=== PATIENT | female | born 1955 | race Caucasian/White ===

== ENCOUNTER → 2016-05-10 17:06 | Outpatient (CLI) | payer MEDICARE ==
[2014-09-30 12:19] VITALS: BMI 24.8
[~2016-05-10 17:06] MED LIST: XANAX0.25 MG PO; ZOLOFT50 MG PO
== END | disposition home or self-care (01) ==
LOC: D.MAMMO 11:45
DX: Z12.31 Encounter for screening mammogram for malignant neoplasm of breast (principal)

== ENCOUNTER → 2016-06-22 18:51 | Outpatient (CLI) | payer MEDICARE ==
[2014-09-30 12:19] VITALS: BMI 24.8
== END | disposition home or self-care (01) ==
LOC: D.MAMMO 09:30
DX: R92.8 Other abnormal and inconclusive findings on diagnostic imaging of breast (principal)

== ENCOUNTER → 2016-07-14 16:05 | Outpatient (CLI) | payer MEDICARE ==
[2014-09-30 12:19] VITALS: BMI 24.8
== END | disposition home or self-care (01) ==
LOC: D.US 06-29 11:00 → D.MAMMO 13:00
DX: R92.0 Mammographic microcalcification found on diagnostic imaging of breast (principal)

== ENCOUNTER 2017-10-15 08:00 | Outpatient (CLI) | payer MEDICARE ==
[2014-09-30 12:19] VITALS: BMI 24.8
== END 2017-10-15 09:00 | disposition home or self-care (01) ==
LOC: D.MAMMO 08:00
DX: Z12.31 Encounter for screening mammogram for malignant neoplasm of breast (principal)

== ENCOUNTER 2018-10-25 08:00 | Outpatient (CLI) | payer MEDICARE ==
[2014-09-30 12:19] VITALS: BMI 24.8
== END 2018-10-25 23:59 | disposition home or self-care (01) ==
LOC: D.MAMMO 08:00
PROVIDERS: ATTEND Nurse Practitioner Family
DX: Z12.31 Encounter for screening mammogram for malignant neoplasm of breast (principal)

== ENCOUNTER 2020-09-15 14:00 | Outpatient (CLI) | payer MEDICARE, MEDICAID ==
[2014-09-30 12:19] VITALS: BMI 24.8
== END 2020-09-15 23:59 ==
LOC: D.MAMMO 14:00
PROVIDERS: ATTEND Nurse Practitioner Family
DX: Z12.31 Encounter for screening mammogram for malignant neoplasm of breast (principal)